=== PATIENT | male | born 1990 | race Asian ===

== ENCOUNTER 2020-10-12 17:42 | Inpatient (IN) ==
[2020-10-12] MEDS ORDERED: SODIUM CHLORIDE 0.9% 1000ML 1,000 ML IV STA (19:53)
[2020-10-12] MEDS ORDERED: PIPERACILL/TAZOBAC CONSULT ACTIVE PRN (19:53)
[2020-10-12] MEDS ORDERED: PIPERACILLIN/TAZOBACTAM 4.5 GM/120 ML BAG IV ONE (19:53)
[2020-10-12] MEDS ORDERED: MoRPHine SULFATE 4 MG/ML 1 ML CARP\\VIAL IV PRN (19:53)
[2020-10-12] MEDS ORDERED: ONDANSETRON INJ 2 MG/ML 2 ML VIAL IV STA (19:53)
--- NOTE | 2020-10-12 19:59 | Emergency Department Note ---
Impression & Plan Abscess, perianal, Fever ED Provider Note NAME: KATIE YORK AGE: 30 SEX: M : 1990 ARRIVES VIA: Walk-In INFORMANT: Patient, ED PROVIDER(S): León Abad DO CHIEF COMPLAINT: Rectal pain HPI: The patient is a 30-year-old male who presented to the emergency department for rectal pain. The patient has had ongoing symptoms for the last 4 days. He was seen at [facility] and at that time started on clindamycin. He was told the area was not able to be drained but if it got worse he should go to the emergency department. The patient complains of fever and cough. He also complains of generalized weakness. He has had no recent trauma. He has not had similar symptoms in the past. The patient states he noticed the area was starting to open up today and draining. He was told if there is any drainage to go to the emergency department. ROS: See above HPI for pertinent positives & negatives. A total of 10 systems reviewed and were otherwise negative. PAST MEDICAL HISTORY: See Below PAST SURGICAL HISTORY: See Below FAMILY HISTORY: See Below SOCIAL HISTORY: See Below HOME MEDICATIONS: See Below ALLERGIES: See Below VITALS: See Below PHYSICAL EXAMINATION: GENERAL: The patient is awake and alert. He is somewhat anxious appearing. EYES: The conjunctivae are clear. The pupils are round and reactive. EARS, NOSE, MOUTH AND THROAT: The nose is without any evidence of any deformity. NECK: The neck is nontender and supple. RESPIRATORY: Normal respiratory effort is noted there is no evidence of wheezing rhonchi or rales CARDIOVASCULAR: Tachycardic rate with regular rhythm was noted. There was no definite murmur. GASTROINTESTINAL: The abdomen is soft. Abdomen is nontender. MUSCULOSKELETAL/EXTREMITIES: There is no evidence of gross deformity full range of motion is noted in the hips and shoulders. SKIN: There was significant induration on the right gluteal cleft. There was an opening inferior to the rectum at approximately 5:00. Purulent drainage was noted. NEUROLOGIC: Patient is awake alert and oriented x3. MEDICAL DECISION MAKING: The patient is a 30-year-old male who presented to the emergency department for an evaluation of rectal pain. The patient was started on oral antibiotic recently for rectal pain and swelling. He started having some drainage and presented to the emergency department with fever and tachycardia. The patient's history and physical exam do appear to be consistent with a perianal abscess. Given the proximity to the rectum CT scan was obtained to determine the location of the purulent material. I discussed the patient's laboratory and radiographic studies with him. I also discussed his case with the on-call general surgical group. They have agreed to evaluate the patient in the emergency department for further management and disposition. The patient was agreeable to this plan. He was treated with IV fluids IV antibiotics and IV pain medication. He was feeling much better on subsequent reevaluation. Triage Nursing notes reviewed. Prior medical records reviewed Vital Signs: reviewed and remarkable for fever Differential diagnosis: Cellulitis, abscess, MRSA infection, DVT, necrotizing fasciitis, dermatitis, drug eruption, allergic reaction, as well as other pathologies. ER treatment provided: See below Diagnostics interpreted by me: ECG: none Cardiac Monitoring: An order was placed for continuous cardiac monitoring. The monitor shows a rate of 75 bpm with sinus rhythm. Laboratory studies: As stated above and show below. Imaging studies: See below Consultation(s): I discussed this case with Arun Bedolla who is on-call for the general surgical group. He will evaluate the patient in the emergency department for further management and disposition. Past Med/Surg History Social History Smoking Status: Never smoker Feels Safe at Home: Yes Allergies Allergies Allergy/AdvReac Type Severity Reaction Status Date / Time No Known Allergies Allergy Unverified 10/12/20 20:21 Home Meds Home Medications Medication Instructions Recorded Confirmed acetaminophen [Tylenol] 650 mg PO QID PRN 10/12/20 10/12/20 clindamycin HCl 300 mg PO TID 10/12/20 10/12/20 Results & Data (ED) Vital Signs Vital Signs - 24 hr 10/12/20 17:46 10/12/20 21:00 Temperature 37.9 C H Temperature Source Temporal Artery Scan Pulse Rate 126 H Pulse Rate [Right Finger] 67 Pulse Rhythm Regular Pulse Rhythm [Right Finger] Regular Pulse Strength Normal Pulse Strength [Right Finger] Normal Respiratory Rate 18 14 Respiratory Effort / Characteristics Non-Labored Spontaneous Non-Labored Spontaneous Accessory Muscle Use Respiratory Depth Normal Normal Respiratory Pattern Regular Regular Blood Pressure 115/72 Blood Pressure [Right Arm] 114/68 Blood Pressure Mean 86 Blood Pressure Mean [Right Arm] 83 Blood Pressure Position [Right Arm] Lying Pulse Oximetry 97 99 Oxygen Delivery Method Room Air Room Air Sepsis Recent Fever Within 48 Hours No Sepsis New/Unexplained Change in Mental Status No Sepsis Action Taken by Nursing No Action Required Home Medications Current Medication List: was personally reviewed by me Laboratory Data Attestation: I reviewed the patient's lab results. Result diagrams: 10/12/20 20:15 10/12/20 20:15 Lab Results 10/12/20 10/12/20 10/12/20 Range/Units 20:15 20:15 20:15 WBC 13.30 H (4.8-10.8) K/uL RBC 4.54 L (4.7-6.1) M/uL Hgb 14.1 (14.0-18.0) g/dL Hct 39.5 L (42-52) % MCV 87.0 (80-100) fL MCH 31.1 (25-34) pg MCHC 35.7 (32-36) g/dL RDW Std Deviation 40.2 (36.4-46.3) fL RDW Coeff of Krista 12.6 (11.5-14.5) % Plt Count 291 (130-400) K/uL MPV 9.5 (7.4-10.4) fL Immature Gran % (Auto) 0.2 % Neut % (Auto) 78.6 % Lymph % (Auto) 15.8 % Randall % (Auto) 5.3 % Eos % (Auto) 0.0 % Baso % (Auto) 0.1 % Neut # (Auto) 10.46 H (1.4-6.5) K/uL Lymph # (Auto) 2.10 (1.2-3.4) K/uL Randall # (Auto) 0.71 H (0.11-0.59) K/uL Eos # (Auto) 0.00 (0-0.5) K/uL Baso # (Auto) 0.01 (0-0.2) K/uL Immature Gran # (Auto) 0.02 (0.00-0.02) K/uL ESR (0-15) mm/hr Sodium 134 L (136-145) mmol/L Potassium 3.6 (3.5-5.1) mmol/L Chloride 101 (98-107) mmol/L Carbon Dioxide 26 (21-32) mmol/L Anion Gap 7.0 (3-11) BUN 12 (7-18) mg/dl Creatinine 1.18 (0.6-1.4) mg/dl Est Cr Clr Drug Dosing 95.4 ml/min Est GFR ( Amer) 96.1 ml/min Est GFR (Non-Af Amer) 82.9 ml/min BUN/Creatinine Ratio 9.7 L (10-20) Glucose 110 H (70-99) mg/dl Calcium 8.8 (8.5-10.1) mg/dl Total Bilirubin 0.7 (0.2-1) mg/dl AST 16 (15-37) U/L ALT 21 (12-78) U/L Alkaline Phosphatase 80 (45-117) U/L C-Reactive Protein 13.10 H (0-0.29) mg/dl Total Protein 8.1 (6.4-8.2) gm/dl Albumin 3.5 (3.4-5.0) gm/dl Globulin 4.6 H (2.5-4.0) gm/dl Albumin/Globulin Ratio 0.8 L (0.9-2) Procalcitonin 0.45 (0-0.5) ng/ml COVID-19 Eval Order SARS-CoV-2 (PCR) (Negative) 10/12/20 10/12/20 10/12/20 Range/Units 20:15 20:15 20:15 WBC (4.8-10.8) K/uL RBC (4.7-6.1) M/uL Hgb (14.0-18.0) g/dL Hct (42-52) % MCV (80-100) fL MCH (25-34) pg MCHC (32-36) g/dL RDW Std Deviation (36.4-46.3) fL RDW Coeff of Krista (11.5-14.5) % Plt Count (130-400) K/uL MPV (7.4-10.4) fL Immature Gran % (Auto) % Neut % (Auto) % Lymph % (Auto) % Randall % (Auto) % Eos % (Auto) % Baso % (Auto) % Neut # (Auto) (1.4-6.5) K/uL Lymph # (Auto) (1.2-3.4) K/uL Randall # (Auto) (0.11-0.59) K/uL Eos # (Auto) (0-0.5) K/uL Baso # (Auto) (0-0.2) K/uL Immature Gran # (Auto) (0.00-0.02) K/uL ESR 39 H (0-15) mm/hr Sodium (136-145) mmol/L Potassium (3.5-5.1) mmol/L Chloride (98-107) mmol/L Carbon Dioxide (21-32) mmol/L Anion Gap (3-11) BUN (7-18) mg/dl Creatinine (0.6-1.4) mg/dl Est Cr Clr Drug Dosing ml/min Est GFR ( Amer) ml/min Est GFR (Non-Af Amer) ml/min BUN/Creatinine Ratio (10-20) Glucose (70-99) mg/dl Calcium (8.5-10.1) mg/dl Total Bilirubin (0.2-1) mg/dl AST (15-37) U/L ALT (12-78) U/L Alkaline Phosphatase (45-117) U/L C-Reactive Protein (0-0.29) mg/dl Total Protein (6.4-8.2) gm/dl Albumin (3.4-5.0) gm/dl Globulin (2.5-4.0) gm/dl Albumin/Globulin Ratio (0.9-2) Procalcitonin (0-0.5) ng/ml COVID-19 Eval Order Covid19 at [facility] SARS-CoV-2 (PCR) NEGATIVE (Negative) Administered Medications Morphine Sulfate (Morphine Sulfate 4 Mg/Ml 1 Ml Carp\Vial) 4 mg IV Q30M PRN PRN Reason: Pain Stop: 10/26/20 19:52 Last Admin: 10/12/20 20:14 Dose: 4 mg Documented by: [id number] Discontinued Medications Piperacillin Sod/Tazobactam Sod (Zosyn) 4.5 gm in 120 mls @ 240 mls/hr IV NOW ONE Stop: 10/12/20 20:22 Last Infusion: 10/12/20 21:01 Dose: 0 mls/hr Documented by: [id number] Admin: 10/12/20 20:16 Dose: 240 mls/hr Documented by: [id number] Sodium Chloride (Nss 1000ml) 1,000 mls @ 999 mls/hr IV .Q1H1M STA Stop: 10/12/20 20:53 Last Infusion: 10/12/20 21:06 Dose: 0 mls/hr Documented by: [id number] Admin: 10/12/20 20:13 Dose: 999 mls/hr Documented by: [id number] Ioversol (Optiray 320 100ml) 94 ml IV ONCE ONE Stop: 10/12/20 21:45 Last Admin: 10/12/20 21:44 Dose: 94 ml Documented by: [id number] Ondansetron HCl (Ondansetron Inj 2 Mg/Ml 2 Ml Vial) 4 mg IV NOW STA Stop: 10/12/20 19:54 Last Admin: 10/12/20 20:13 Dose: 4 mg Documented by: [id number] Imaging Data Radiologist's Impression: Chest X-Ray 10/12/20 19:53 XR chest 1V portable HISTORY: Fever COMPARISON: None. FINDINGS: The lungs are clear. The heart is normal in size. No pleural effusions. No pneumothorax. Mild prominence the AP window which could be due to the slightly rotated study. IMPRESSION: Mild prominence at the AP window which could be due to the slightly rotated study. Otherwise, normal chest. ACT 112: Negative or not required by law. Electronically signed by: Paul Saxena M.D. 10/12/2020 8:13 PM Patient: KATIE YORK (Male) : 89 Status: ER Date: 10/12/20 22:26 Room #: History: 94 ml optiray 320, perirectal swelling, has appendix Slices: [id number] Priors: Tech: [place] Kaleb @ [id number] Exams: CT PELVIS Contrast: IV Amt: 94ml opti 320 Accession Numbers: [id number] Preliminary Findings Only See Final Report For Complete Findings CT PELVIS: 3.0 x 2.5 x 3.0 cm right perianal abscess with fluid and gas. Surrounding subcutaneous edema and overlying dermal thickening suggesting cellulitis. No intrapelvic extension. Visualized intrapelvic structures are unremarkable. No acute osseous abnormality. Radiologist: Ole Dash M.D. Study ready at 22:30 and initial results transmitted at 22:41 Discharge Plan Visit Data Chief Complaint: Rectal Pain Stated Complaint: INFECTION NEAR RECTUM, POSS BLOODY STOOL ED Provider: León Abad Discharge Problem: Abscess, perianal, Fever Patient Disposition: Being Evaluated by Surgeon Condition: Good Forms Stand Alone Forms: [facility] Prescriptions Prescriptions: No Action acetaminophen [Tylenol] 325 mg Tablet 650 mg PO QID PRN (Reason: Pain) RF: 0 clindamycin HCl 300 mg Capsule 300 mg PO TID RF: 0 Referrals Referrals: PCP,NO [Primary Care Provider] - Discharge Problem: Fever Qualifiers: Fever type: unspecified Qualified Code(s): R50.9 - Fever, unspecified
--- NOTE | 2020-10-12 20:14 | XRay Report ---
XR chest 1V portable HISTORY: Fever COMPARISON: None. FINDINGS: The lungs are clear. The heart is normal in size. No pleural effusions. No pneumothorax. Mi ld prominence the AP window which could be due to the slightly rotated study. IMPRESSION: Mild prominence at the AP window which could be due to the slightly rotated study. Otherwise, normal chest. ACT 112: Negative or not required by law. Electronically signed by: Paul Saxena M.D. 10/12/2020 8:13 PM
[2020-10-12 20:28] LABS: Hematocrit (blood only) 39.5 % (42-52); Hemoglobin 14.1 g/dL (14.0-18.0); Mean Corpuscular Hemoglobin 31.1 pg (25-34); Mean Corpuscular Hgb Conc 35.7 g/dL (32-36); Mean Platelet Volume 9.5 fL (7.4-10.4); Platelet Count 291 K/uL (130-400); RDW Coefficient of Variation 12.6 % (11.5-14.5); RDW Standard Deviation 40.2 fL (36.4-46.3); Red Blood Count 4.54 M/uL (4.7-6.1)
[2020-10-12 20:46] LABS: Albumin Level 3.5 gm/dl (3.4-5.0); BUN Creatinine Ratio 9.7 (10-20); C Reactive Protein 13.1 mg/dl (0-0.29); Calcium 8.8 mg/dl (8.5-10.1); Creatinine Clr Calc Pharmacy 95.4 ml/min; Est GFR (African American) 96.1 ml/min; Est GFR (Non-African American) 82.9 ml/min; Potassium 3.6 mmol/L (3.5-5.1)
[2020-10-12 20:49] LABS: Albumin Globulin Ratio 0.8 (0.9-2); Bilirubin,Total 0.7 mg/dl (0.2-1); Globulin 4.6 gm/dl (2.5-4.0); Total Protein 8.1 gm/dl (6.4-8.2)
[2020-10-12 20:51] LABS: Basophils # (auto) 0.01 K/uL (0-0.2); Basophils % (auto) 0.1 %; Immature Granulocytes # (auto) 0.02 K/uL (0.00-0.02); Immature Granulocytes % (auto) 0.2 %; Lymphocytes % (auto) 15.8 %; Monocytes # (auto) 0.71 K/uL (0.11-0.59); Monocytes % (auto) 5.3 %; Neutrophils # (auto) 10.46 K/uL (1.4-6.5); Neutrophils % (auto) 78.6 %
[2020-10-12] MEDS ORDERED: OPTIRAY 320 100ml IV ONE (21:44)
--- NOTE | 2020-10-12 23:21 | History & Physical Report ---
Date of Service October 12, 2020 Assessment & Plan (1) Abscess, perianal: Patient will be admitted to the hospital and we will proceed as follows: Despite the area draining there is still significant fluid collection noted on CT scan we will therefore plan on incision and drainage of this perianal abscess in the operating room tomorrow. Analgesics will be provided Antiemetics will be provided We will keep the patient n.p.o. We will provide IV fluid for hydration The treating emergency room physician has obtained cultures of the draining fluid. We will follow for the results of these. The present time the culture as well as Gram stain is pending. antibiotics have been initiated in the form of Zosyn which we will continue. Antibiotics can be adjusted and tailored based on culture results. Hope would be to transition the patient to oral antibiotics prior to discharge. The above plan was discussed in detail with the patient. I have also discussed via phone with the patient's sister (at the patient's request) who is a practicing lead supply worker in [place], [place] We will utilize SCDs for DVT prevention no chemical means will be used due to planned surgery Additional recommendations were made based on operative findings as well as the patient's clinical course as it unfolds and his recovery from his planned procedure. 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 Patient presented to the emergency department [facility] secondary to rectal pain for approximately 4 days. Patient says because this problem [facility] on clindamycin but despite this modality his symptoms persisted. Patient notes that he has been running low-grade fevers. He has not had any shakes or chills. He denies any abdominal pain or nausea vomiting. She notes earlier today an area of his rectum began draining some slightly bloody fluid along with some purulent material. Because this he presented to the emergency department. He has never had this problem be fore and he denies any trauma to his rectal area. He notes he does have pain on the right side of his rectum. He notes that the pain is palliated with lying still. He notes with certain movements the pain recurs. He notes that the pain does not radiate. In the emergency department patient had labs and imaging which I dependently reviewed. CBC revealed white blood cell count was elevated at 13.3. His hemoglobin was normal at 14.1. Hematocrit was slightly decreased in value of 39.5 and his platelet count was within the normal range. Chemistry profile showed sodium was 134. Potassium, BUN, and creatinine were all within normal range. C-reactive protein was elevated at 13.1. Erythrocyte sedimentation rate was elevated at 39. Covid test was performed and was noted be negative. A c hest x-ray was performed and did not show any evidence of CHF or pneumonia. Patient did have a pelvic CT scan which did demonstrate a 3.0 x 2.5 x 3.0 cm right perianal abscess with an air-fluid level as well as surrounding gas. Surrounding subcutaneous edema suggesting cellulitis. There is no intrapelvic extension of the abscess noted. At the time of my interview the patient was resting comfortably in bed in minimal pain and in no distress. Allergies Allergy/AdvReac Type Severity Reaction Status Date / Time No Known Allergies Allergy Unverified 10/12/20 20:21 Home Medications Medication Instructions Recorded Confirmed Type acetaminophen [Tylenol] 650 mg PO QID PRN 10/12/20 10/12/20 History clindamycin HCl 300 mg PO TID 10/12/20 10/12/20 History Past Med/Surg History Social History Smoking Status: Never smoker Second Hand Exposure: No; Do You Dip or Chew Tobacco: No; Tobacco Cessation Education Requested by Patient: No Hx Alcohol Use: No Hx Substance Use: No Preferred Language: Mongolian Security Assessor Required: No Beliefs That Will Affect Care: None Current Living Situation: Other Current Living Situation Comment: roommates Other Information That Helps Us Care for You: No Feels Safe at Home: Yes Safety Concerns: Feels Safe At This Time Assistive Devices: Glasses Review of Systems Constitutional: + fever; no chills Eyes: no diplopia Ear, Nose, Mouth, Throat: no ear pain Respiratory: no cough and no dyspnea Cardiovascular: no chest pain Gastrointestinal: no abdominal pain, no nausea and no vomiting Genitourinary: no dysuria Musculoskeletal: no back pain Integumentary: no rash Neurologic: no localized weakness Physical Exam Physical Exam: Patient was noted to have some induration of the right gluteal cleft adjacent to the rectum. At approximately 5 o'clock position there was a small opening adjacent to the rectum. This area was noted to be draining some purulent material. The material was not malodorous. I do not appreciate any crepitus with palpation of the soft tissue. The area was painful to palpation. Constitutional: well developed and well nourished; no acute distress Eyes: Wears glasses ENMT: Ears: no hearing impairment Neck: trachea midline Respiratory: normal respiratory effort, lungs clear to auscultation Cardiovascular: Rate/Rhythm: regular rate and regular rhythm Gastrointestinal (Abdomen): Percussion/Palpation: abdomen soft; abdomen nontender Musculoskeletal: No calf tenderness Skin: no rashes, warm and dry Neurologic: moves all extremities Psychiatric: A+Ox3, euthymic affect Results & Data Results & Data ([facility]) Vital Signs (Past 12 Hours) Vital Signs Temp Pulse Pulse Resp BP BP Pulse Ox 10/12/20 21:00 67 14 114/68 99 10/12/20 17:46 37.9 C H 126 H 18 115/72 97 Code Status & VTE Plan VTE Prophylaxis Plan VTE Prophylaxis will be ordered: Yes Supervising Physician Co-Signing Physician Notes I personally saw and evaluated the patient with Tonio Pepper PA-C and agree with the assessment and plan. 30 yo male with perirectal abscess -CT results and images reviewed, consistent with perirectal abscess -Zosyn -NPO -To OR today for I&D of perirectal abscess PG Care Time/CCT Total # of Minutes Spent Total Time Spent with Patient: Total time spent is greater than 50% in coordination of care (as documented) at patient's floor/unit and/or counseling patient: Coding Level of Care Code 02842 Initial Inpt Care Lvl 3 Diagnoses Abscess, perianal K61.0
[2020-10-13] MEDS ORDERED: PIPERACILL/TAZOBAC CONSULT ACTIVE PRN (00:15)
[2020-10-13] MEDS ORDERED: ACETAMINOPHEN 1,000 MG/100 ML VIAL IV PRN (00:45)
[2020-10-13] MEDS ORDERED: MoRPHine SULFATE 4 MG/ML 1 ML CARP\\VIAL IV PRN ×2 (00:45→10:28)
[2020-10-13] MEDS ORDERED: ONDANSETRON INJ 2 MG/ML 2 ML VIAL IV PRN ×2 (00:45→09:46)
[2020-10-13] MEDS: LACTATED RINGER'S 1,000 ML IV SCH ×3 (01:09→17:45)
[2020-10-13] MEDS: PIPERACILLIN/TAZOBACTAM 3.375 GM in DEXTROSE 5% 100 ML IV SCH ×3 (02:37→17:44)
[2020-10-13 06:13] LABS: Basophils # (auto) 0.01 K/uL (0-0.2); Basophils % (auto) 0.1 %; Eosinophils # (auto) 0.02 K/uL (0-0.5); Eosinophils % (auto) 0.2 %; Hematocrit (blood only) 37.6 % (42-52); Hemoglobin 13.2 g/dL (14.0-18.0); Immature Granulocytes # (auto) 0.02 K/uL (0.00-0.02); Immature Granulocytes % (auto) 0.2 %; Lymphocytes # (auto) 1.21 K/uL (1.2-3.4); Lymphocytes % (auto) 12.3 %; Mean Corpuscular Volume 88.3 fL (80-100); Mean Platelet Volume 9.1 fL (7.4-10.4); Monocytes # (auto) 1.47 K/uL (0.11-0.59); Neutrophils # (auto) 7.09 K/uL (1.4-6.5); Neutrophils % (auto) 72.2 %; Platelet Count 233 K/uL (130-400); RDW Coefficient of Variation 12.8 % (11.5-14.5); RDW Standard Deviation 40.9 fL (36.4-46.3); Red Blood Count 4.26 M/uL (4.7-6.1); White Blood Count 9.82 K/uL (4.8-10.8)
[2020-10-13 06:18] LABS: Mean Corpuscular Hgb Conc 35.1 g/dL (32-36)
[2020-10-13 06:29] LABS: BUN Creatinine Ratio 7.8 (10-20); Calcium 7.8 mg/dl (8.5-10.1); Est GFR (African American) 98.1 ml/min; Est GFR (Non-African American) 84.6 ml/min; Potassium 3.9 mmol/L (3.5-5.1)
--- NOTE | 2020-10-13 07:38 | History & Physical Bridge Note ---
Date of Service October 13, 2020 History & Physical Bridge Note I have examined the patient, reviewed the History & Physical and in the interval since the performance of the History & Physical I have noted the following changes of clinical significance: no changes noted
[2020-10-13] MEDS ORDERED: ONDANSETRON INJ 2 MG/ML 2 ML VIAL ONE (08:31)
[2020-10-13] MEDS ORDERED: DEXAMETHASONE SOD INJ 4 MG/ML VIAL ONE (08:31)
[2020-10-13] MEDS ORDERED: LIDOCAINE 2% 2 ML VIAL/AMP(20MG/ML) INFIL ONE (08:31)
[2020-10-13] MEDS ORDERED: fentaNYL citrate 100 MCG/2 ML VIAL ONE (08:32)
[2020-10-13] MEDS ORDERED: PROPOFOL IV EMULSION 10 MG/ML 20 ML VIAL IV ONE (08:32)
[2020-10-13] MEDS ORDERED: MIDAZOLAM HCL 1 MG/ML 2ML VIAL ONE (08:32)
--- NOTE | 2020-10-13 08:36 | CT Scan Report ---
CT pelvis w/IV con only CLINICAL HISTORY: perirectal swelling COMPARISON STUDY: No previous studies for comparison. FINDINGS: The patient was scanned in a dynamic helical fashion during intravenous administration of 94 cc of Op tiray 320. There is no pathologic pelvic lymphadenopathy. There is no ascites. There is no pathologic pelvic bowel dilatation. There is no evidence of sigmoid diverticulitis. There are no findings to indicate acute appendicitis. There is a right gluteal fold air-fluid collection measuring 32 mm. This is consistent with a periphe ral anal abscess. There is infiltration of the surrounding fat and mild adjacent skin thickening. There are scattered sclerotic bone lesions likely representing bone islands. IMPRESSION: 1. 32 mm right perianal abscess. ACT 112: Negative or not required by law. Electronically signed by: Yan Crouch M.D. 10/13/2020 8:35 AM
[2020-10-13] MEDS ORDERED: BUPIVACAINE/EPINEPHRINE 0.5% MPF 1:200,000 30 ML VIAL ONE (09:18)
--- NOTE | 2020-10-13 09:43 | Anesthesiology Consultation ---
Date of Service October 13, 2020 Assessment & Plan Chart Review Chart Review: Acceptable Risk for Surgery Consults Requested none ASA ASA1 Proposed Anesthesia Anesthesia Type: General Risk / Benefits Reviewed With: PT / POA / Parent / Guardian, Accepts Plan and Informed Consent Obtained History Surgery Operation Date: 10/13/20 10:30 Proposed Procedures p Incision and Drainage Haylie-Rectal Abscess - Yannick Bedolla, DO Height/Weight Height: 5 ft 10 in Weight: 80.7 kg Allergies Allergy/AdvReac Type Severity Reaction Status Date / Time No Known Allergies Allergy Unverified 10/12/20 20:21 Medications Home Medications Medication Instructions Recorded Confirmed Last Taken acetaminophen [Tylenol] 650 mg PO QID PRN 10/12/20 10/12/20 10/12/20 12:30 clindamycin HCl 300 mg PO TID 10/12/20 10/12/20 10/12/20 Active Medications Generic Name Dose Route Start Last Admin Trade Name Freq PRN Reason Stop Dose Admin Lactated Ringer's 1,000 mls @ 125 mls/hr 10/13/20 00:45 10/13/20 09:02 Lr IV 11/12/20 00:44 Infused .Q8H KERRI Infusion Acetaminophen 1,000 mg in 100 mls @ 400 mls/hr 10/13/20 00:45 10/13/20 01:24 Ofirmev IV 10/16/20 00:44 Infused Q8H PRN Infusion Pain Piperacillin Sod/Tazobactam 115 mls @ 28.75 mls/hr 10/13/20 02:00 10/13/20 07:29 Sod 3.375 gm/ Dextrose IV 10/23/20 01:59 Infused Q8H KERRI Infusion Protocol NPO Date Last Intake of Fluids: 10/12/20 Time Last Intake of Fluids: 15:00 Date Last Intake of Solids: 10/12/20 Time Last Intake of Solids: 15:00 Social History Smoking Status: Never smoker Do You Dip or Chew Tobacco: No Hx Alcohol Use: No Hx Substance Use: No Physical Exam Vital Signs Last Vital Signs Temp 36.8 C 10/13/20 08:53 Pulse 93 H 10/13/20 08:53 Resp 18 10/13/20 08:53 BP 112/63 10/13/20 08:53 Pulse Ox 99 10/13/20 08:53 Testing Laboratory Results 10/13/20 06:01 10/13/20 06:01 10/12/20 19:50 Gram Stain - Final Buttock,Right Wound Culture - Preliminary Gram negative bacilli
[2020-10-13] MEDS ORDERED: PROMETHAZINE HCL 12.5 MG in SODIUM CHLORIDE 0.9% 50 ML IV PRN (09:46)
[2020-10-13] MEDS ORDERED: fentaNYL citrate 100 MCG/2 ML VIAL IV PRN (09:46)
[2020-10-13] MEDS ORDERED: METOCLOPRAMIDE HCL INJ 5 MG/ML 2 ML VIAL IV PRN (09:46)
[2020-10-13] MEDS ORDERED: HYDROmorphone INJ 2 MG/ML SYR/VIAL IV PRN (09:46)
[2020-10-13] MEDS ORDERED: ATROPINE SULFATE 0.1 MG/ML 10ML SYR IV PRN (09:46)
[2020-10-13] MEDS ORDERED: ePHEDrine sulfate 50 MG/ML AMP IV PRN (09:46)
--- NOTE | 2020-10-13 09:59 | Post Operative Brief Note ---
PG Immediate Post Op with CF Date of Surgery October 13, 2020 Pre & Post Diagnosis Operation Date: 10/13/20 10:30 Perirectal Abscess I identified the patient and participated in the time-out.: Yes Procedure Operation Date: 10/13/20 10:30 Incision and drainage of perianal abscess Surgeon Yannick Bedolla DO Audio Visual Secretary Columba Stern PA-C Estimated Blood Loss 10 Findings Consistent with Post-Op Diagnosis Fluids 500mL crystalloid Specimens Specimen Description: Culture abscess fluid Anesthesia Type General Complications none Disposition Disposition: Recovery Room
--- NOTE | 2020-10-13 10:01 | Operative Report ---
PG Post Operative Report Pre & Post Diagnosis Operation Date: 10/13/20 10:30 Perirectal abscess I identified the patient and participated in the time-out.: Yes Procedure Operation Date: 10/13/20 10:30 Incision and drainage of perianal abscess Surgeon Yannick Bedolla DO Cash Register Mechanic Columba Stern PA-C Estimated Blood Loss 10 Findings Consistent with Post-Op Diagnosis Specimens Abscess culture to micro Drains None Anesthesia Type General Complications none Disposition Disposition: Recovery Room Indications 30 yo male with perirectal abscess Description of Procedure The patient was brought to the OR and placed in the lithotomy position. At this time He underwent General LMA anesthesia without issue. He was given appropriate pre-operative antibiotics. The perineum was prepped and draped in the usual sterile fashion. A timeout was called. The procedure was verified as Incision and drainage of kaya-rectal abscess. Surgical, anesthesia and nursing teams agreed and the procedure was begun. Digital rectal exam was performed and no mass or fistula was found. After injection of 0.25% Marcaine with epinephrine, an incision was made directly over the most fluctuant area of abscess using a #11 blade scalpel. Purulent fluid was encountered. Wide drainage was ensured. All loculations were broken up bluntly. At this time the incision was irrigated until clear. Hemostasis was achieved using electrocautery. Hemostasis was complete. The incision was packed with 1 inch Iodoform packing. Sterile dressing was applied. The patient was awakened from anesthesia and taking to PACU having remained stable throughout the entire case. All needle and sponge counts correct x 2. The physican's physician assistant certified was present and scrubbed throughout the entire case. She was essential in positioning, prepping and draping the patient, retraction and exposure, placement of the dressings. I attest to the content of the Intraoperative Record and any orders documented therein. Any exceptions are noted below.
[2020-10-13] MEDS ORDERED: oxyCODONE/ACETAMINOPHEN 5mg/325mg TAB PO PRN (10:28)
--- NOTE | 2020-10-13 12:50 | Anesthesiology Progress Note ---
Date of Service October 13, 2020 Anesthesia Post Procedure Vital Signs Vital Signs: Temp Pulse Pulse Pulse Resp BP BP 10/13/20 11:40 80 16 111/74 10/13/20 11:23 37.1 C 81 18 100/59 L 10/13/20 10:51 36.8 C 77 16 100/67 10/13/20 10:40 79 18 110/66 10/13/20 10:30 36.3 C L 88 18 109/66 10/13/20 10:20 79 16 96/60 L 10/13/20 10:10 80 18 109/73 10/13/20 10:00 36.1 C L 76 14 98/60 L 10/13/20 08:53 36.8 C 93 H 18 112/63 10/13/20 07:55 36.6 C 103 H 16 111/71 10/13/20 04:42 36.5 C 75 18 102/68 10/13/20 02:28 37.1 C 10/13/20 00:40 39.1 C H 10/13/20 00:15 38.1 C H 10/13/20 00:05 37.8 C H 10/12/20 23:35 37.0 C 64 14 104/79 10/12/20 21:00 67 14 114/68 10/12/20 17:46 37.9 C H 126 H 18 115/72 Pulse Ox 10/13/20 11:40 99 10/13/20 11:23 100 10/13/20 10:51 98 10/13/20 10:40 97 10/13/20 10:30 97 10/13/20 10:20 99 10/13/20 10:10 98 10/13/20 10:00 100 10/13/20 08:53 99 10/13/20 07:55 97 10/13/20 04:42 98 10/13/20 02:28 10/13/20 00:40 10/13/20 00:15 10/13/20 00:05 10/12/20 23:35 98 10/12/20 21:00 99 10/12/20 17:46 97 Pain Intensity Bilateral Buttock: Pain Intensity: 2 Transfer of Care Handoff Completed per policy Notes Mental Status: alert / awake / arousable and participated in evaluation Patient Amnestic to Procedure: Yes Nausea / Vomiting: adequately controlled Pain: adequately controlled Airway Patency, RR, SpO2: stable & adequate BP & HR: stable & adequate Hydration State: stable & adequate Anesthetic Complications: no major complications apparent
[2020-10-14] MEDS: PIPERACILLIN/TAZOBACTAM 3.375 GM in DEXTROSE 5% 100 ML IV SCH ×2 (01:57→09:55)
[2020-10-14] MEDS: LACTATED RINGER'S 1,000 ML IV SCH ×2 (01:57→10:04)
[2020-10-14 07:13] LABS: Basophils # (auto) 0.01 K/uL (0-0.2); Basophils % (auto) 0.1 %; Hematocrit (blood only) 35.9 % (42-52); Hemoglobin 12.6 g/dL (14.0-18.0); Immature Granulocytes # (auto) 0.02 K/uL (0.00-0.02); Immature Granulocytes % (auto) 0.3 %; Lymphocytes # (auto) 1.06 K/uL (1.2-3.4); Lymphocytes % (auto) 15.3 %; Mean Corpuscular Hemoglobin 30.8 pg (25-34); Mean Corpuscular Hgb Conc 35.1 g/dL (32-36); Mean Corpuscular Volume 87.8 fL (80-100); Mean Platelet Volume 9.5 fL (7.4-10.4); Monocytes # (auto) 1.05 K/uL (0.11-0.59); Monocytes % (auto) 15.1 %; Neutrophils % (auto) 69.2 %; Platelet Count 271 K/uL (130-400); RDW Coefficient of Variation 12.8 % (11.5-14.5); RDW Standard Deviation 41.4 fL (36.4-46.3); Red Blood Count 4.09 M/uL (4.7-6.1); White Blood Count 6.94 K/uL (4.8-10.8)
[2020-10-14] MEDS: oxyCODONE/ACETAMINOPHEN 5mg/325mg TAB PO PRN ×2 (09:54→14:39)
[2020-10-14] MEDS: MoRPHine SULFATE 2 MG/ML CARP IV PRN ×2 (10:43→13:56)
--- NOTE | 2020-10-14 14:26 | Surgery Progress Note ---
Date of Service October 14, 2020 Assessment & Plan (1) Abscess, perianal: packing changed with Dr. Bedolla will need daily packing changes at home, ? home health ok for d/c on po abx once arrangements are made for packing changes Admission and Anticipated Discharge Date Admission Date: October 12, 2020 Supervising Physician Co-Signing Physician Notes I personally saw and evaluated the patient with Scott Ventura PA-C and agree with the assessment and plan. 30 yo male POD#1 I&D perirectal abscess -Packing changed at bedside, no purulence -Will have him change packing daily for another week -Switch to Augmentin x 10 days -F/u in 1 week, ok to discharge home Subjective some pain with BM, tolerating diet, no fevers Physical Exam Gastrointestinal (Abdomen): Rectal Exam: normal visual inspection of rectum and + rectal tenderness (packing removed, no induration, repacked with 1/4 gauze) Results & Data ([facility]) Vital Signs (Past 12 Hours) Vital Signs Temp Pulse Resp BP Pulse Ox 10/14/20 08:13 36.9 C 79 18 110/70 97 10/14/20 03:00 37.1 C 72 16 108/64 99 PG Care Time/CCT Total # of Minutes Spent Total Time Spent with Patient: Total time spent is greater than 50% in coordination of care (as documented) at patient's floor/unit and/or counseling patient: Coding Level of Care Code None Diagnoses Abscess, perianal K61.0
[2020-10-14] MEDS ORDERED: AMOXICILLIN/CLAVULANATE 875 MG TAB PO SCH (17:00)
--- NOTE | 2020-10-18 09:29 | Discharge Summary ---
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 Patient presented to the emergency department [facility] secondary to rectal pain for approximately 4 days. Patient says because this problem [facility] he was started on clindamycin but despite this modality his symptoms persisted. Patient notes that he has been running low-grade fevers. He has not had any shakes or chills. He denies any abdominal pain or nausea vomiting. She notes earlier today an area of his rectum began draining some slightly bloody fluid along with some purulent material. Because this he presented to the emergency department. He has never had this problem before and he denies any trauma to his rectal area. He notes he does have pain on the right side of his rectum. He notes that the pain is palliated with lying still. He notes with certain movements the pain recurs. He notes that the pain does not radiate. In the emergency department patient had labs and imaging which I dependently reviewed. CBC revealed white blood cell count was elevated at 13.3. His hemoglobin was normal at 14.1. Hematocrit was slightly decreased in value of 39.5 and his platelet count was within the normal range. Chemistry profile showed sodium was 134. Potassium, BUN, and creatinine were all within normal range. C-reactive protein was elevated at 13.1. Erythrocyte sedimentation rate was elevated at 39. Covid test was performed and was noted be negative. A chest x-ray was performed and did not show any evidence of CHF or pneumonia. Patient did have a pelvic CT scan which did demonstrate a 3.0 x 2.5 x 3.0 cm right perianal abscess with an air-fluid level as well as surrounding gas. Surrounding subcutaneous edema suggesting cellulitis. There is no intrapelvic extension of the abscess noted. At the time of my interview the patient was resting comfortably in bed in minimal pain and in no distress. Principal Diagnosis perianal abscess Discharge Exam awake/alert Gastrointestinal (Abdomen) Rectal Exam: normal visual inspection of rectum and + rectal tenderness packing removed, no induration, was repacked with 1/4" guaze Discharge Data Allergies Allergy/AdvReac Type Severity Reaction Status Date / Time No Known Allergies Allergy Unverified 10/15/20 11:43 Consultations 10/12/20 22:43 Consult General Surgery Stat Procedures Performed Operation Date: 10/13/20 10:30 Actual Procedures p Incision and Drainage Haylie-Rectal Abscess(Not Applicable) - Yannick Bedolla DO Ordered Studies 10/12/20 19:53 CT pelvis w/IV con only Urgent Hospital Course (1) Abscess, perianal: This is a 30y M who presented to the [facility] ED on 10/12/20 with complaints of rectal pain over the past 4 days. Workup in the ER revealed a WBC of [address] pelvis showing a 3.0 x 2.5 x 3.0 cm right perianal abscess with an air-fluid level as well as surrounding gas. Patient was started on IV abx and kept NPO with plans for surgical intervention. On 10/13 the patient went to the OR with Dr. Bedolla for an incision and drainage of haylie-anal abscess. The area was packed with nu-gauze. Patient's diet was advanced as tolerated post procedure. Pain controlled on prn medication. IV abx continued. On POD#1 WBC 6 and patient afebrile. Dressing was changed without issue. Pain controlled and diet tolerated. He was transitioned from IV zosyn to PO Augmentin with plans to complete a course of antibiotic as outpatient. Plan was for patient to come to clinic the following day for dressing change. Patient expressed understanding and he was discharged to home without event. Total Time Total Time Spent Total Time Spent (In Minutes): 15 Discharge Plan Discharge Items Patient Disposition: Home - Self-Care Reason For Visit: HAYLIE-RECTAL ABSCESS Discharge Diagnosis: incision and drainage of haylie-rectal abscess Condition on Discharge: Good Activity: Per Instructions section Lifting: No more than 25 pounds Bathing Comment: may shower Exercise/Sports: Wait until after follow-up appointment Driving/Machine Use: no driving while taking narcotics for pain Non-emergency contact: Surgeon Call non-emergency contact if: you have any medication questions, your symptoms worsen, your pain is not controlled, your pain is worsening, you have a fever, y our temperature is above 101.5, your wound has increased redness, your wound has increased drainage and your wound pain has increased Follow-up/Referrals: Yannick Bedolla DO [Physician] - 10/20/20 9:45 am (Please call to schedule follow up in clinic within 1 week) PCP,NO [Primary Care Provider] - Diet: Regular Addtl Attending Provider Instructions: *Please call Dr. Bedolla's office to schedule follow up in the clinic tomorrow, 10/15/20 Please continue daily packing changes at home with 1/2" nu -gauze, cover with 4x4 gauze, and adhere with medipore tape. If you do not have a home nurse, please call the office to have packing changed. Complete the full course of antibiotic prescribed to you You may purchase Tylenol and/or Ibuprofen over the counter if needed for additional pain control Pending Studies at Discharge: No Stand-Alone Forms: My [facility] Team [place], Smoking Cessation Medications and DC Order Prescriptions: New amoxicillin-pot clavulanate [Augmentin] 875-125 mg tablet 1 tab PO BID Qty: 20 RF: 0 oxycodone 5 mg tablet 5 - 10 mg PO .[id number] PRN (Reason: pain, for initial therapy, max 6 tabs per day) Qty: 12 RF: 0 Continued acetaminophen [Tylenol] 325 mg Tablet 650 mg PO QID PRN (Reason: Pain) RF: 0 Discontinued clindamycin HCl 300 mg Capsule 300 mg PO TID RF: 0 Discharge Orders: Discharge Order (Routine); Ordered 10/14/20 Ordered By: Scott Hamm/Other Patient Handouts: Understanding Perianal Abscess, ED ABSCESS Haylie- Anal IandD Admission Data Admit Date/Time: 10/12/20 23:08 Attending Provider: Yannick Bedolla Admit Provider: Yannick Bedolla Primary Care Provider: PCP,NO Other Providers: Yannick Bedolla ; [facility] Other Interventions: Discharge Summary Assessment (RN) Last Done: 10/14/20 16:58 Coding Level of Care Code D/C Day Management <30 mins Diagnoses Abscess, perianal K61.0
== END 2020-10-14 18:20 | disposition home or self-care (01) | DRG 346 ==
LOC: ED 17:42 → 3N 23:08
DX: K61.1 Rectal abscess